=== PATIENT | male | born 1995 | race Caucasian/White ===

== ENCOUNTER 2024-07-16 09:17 | Outpatient (AMB) | payer OTHER, SELFPAY ==
--- NOTE | 2024-07-16 09:22 | A.OFFPC_ITS ---
Vital Signs 07/16/24 09:30 Height 5 ft 3.5 in Weight 197 lb BMI 34.3 BP 114/66 Blood Pressure Location Lt brachial Position Sitting Respiration 12 Pulse 78 Pulse Source Pulse Oximeter Temp 97.3 F Temp Source Oral Pulse Oximetry (%) 96 Oxygen Delivery Method Room Air Intake Visit Reasons: NEW PT EST CARE/HEART CONDITIONS WITH MEDS Intake Note: New patient to establish care Systems Qa Analyst Required: No Allergies Sulfa (Sulfonamide Antibiotics) Allergy (Severe, Verified 07/16/24 09:27) Unknown Medication List - Last Reconciled 07/16/24 by Janae Bailey, DEPENDENCY COUNSELOR- quetiapine (Seroquel) 300 mg PO BEDTIME Tobacco use date assessed: 07/16/24 Dental Screening Dental Screen Date: 07/16/24 Did you have a dental visit in the last 12 months?: Yes Did you have a dental problem in the last 6 months where you did not have access to dental care?: No Was dental information given to patient?: Patient declined HPI HPI Comments History of Present Illness Details 28 y/o M with bipolar 1, etoh dependence in remission, obesity Social: owns gym lives with parents Family hx: Dad prostate Ca, Health Maintenance: Tdap admin today Flu admin today Specialists: [facility] since 2014 Here today as a new patient to est care Previous PCP: Dr Bernabe No medical records avail Bipolar d/o: managed by [facility], on seroquel; has also been on abilify and haldol. Hx of etoh dep in remission Cards: having palpitations, a few times per month; can occur at HS and wake from sleep. Thought at first to be d/t etoh and seroquel. Denies use of stimulants or performing enhancing drugs. Sx started in 2019 - Describes post-exertional tachycardia, taking 5 minutes for heart rate normalization. Has had vertigo and headaches on the L side with negative work up in the recent past to include MRI brain. These sx are better since no etoh. Can feel electrical shock sensation throughout body when taking seroquel. Self decreased seroquel and changed to ER w/ improvement in sx w/ lowering dose. Exam awake alert NAD RRR LS with ins wheeze throughout No edema ble neuro exam nonfocal ekg: lvh normal QTc I discussed with the patient the need for comprehensive evaluation of his palpitations, recommending an EKG and a 72-hour Holter monitor study to document and characterize any arrhythmias. The patient was advised that the Holter will monitor cardiac activity, especially during exertional tasks known to provoke symptoms, ensuring a better understanding of the underlying etiology. Risks, benefits, and alternative diagnostic methods were discussed. Additionally, we discussed the importance of abstinence from alcohol and maintaining a healthy weight to help alleviate symptoms. Follow-up plans include a detailed review of monitor findings and subsequent management according to diagnostic outcomes. Plan: Tdap and flu today EKG today LVH -- consider echo &/or sleep study at next visit Labs Holter x 3 days RTO 3-4 weeks to review results Patient was informed and verbally consented to the use of an ambient scribe for clinic note documentation during this visit. Total time spent caring for the patient today was 40 minutes. This includes time spent before the visit reviewing the chart, time spent during the visit, and time spent after the visit on documentation, reviewing laboratory results, diagnostic imaging, medications, performing a medically necessary evaluation, counseling on diagnoses, care coordination, ordering appropriate tests, ordering appropriate medications, review of tests performed by other providers, reporting test results with the patient, communication with other healthcare providers. [facility] Medical History (Updated 07/16/24 @ 09:58 by Janae Bailey [facility]) Drug abuse (~2013) Alcohol abuse (~2013) Mental health disorder Hypothyroid Bipolar 1 disorder Anxiety and depression Surgical History (Updated 07/16/24 @ 09:35 by Viktoriya Jung MA) No pertinent past surgical history Family History (Updated 07/16/24 @ 09:36 by Viktoriya Jung MA) Maternal Grandmother Dementia Father Prostate cancer Social History (Updated 07/16/24 @ 09:29 by Viktoriya Jung MA) Household Members: Family Both parents involved: Yes Caregiver staying overnight: No Housing: House Are you a primary pet caregiver to a significant other at home: No Do you presently have visiting nurse or other home services: No 75 years or older and lives alone: No Alcohol intake: never Patient Tobacco Use Status: Never used Tobacco e-Cigarette/Vaping Use: Never Used Second Hand Smoke Exposure: No Current occupational status: employed Current occupation: kitchen Cognitive needs: No Hearing needs: No Vision needs: No Questionnaire PHQ-9 Over the last 2 weeks, how often have you been bothered by any of the following problems? 1. Little interest or pleasure in doing things: nearly every day 2. Feeling down, depressed, or hopeless: not at all 3. Trouble falling or staying asleep, or sleeping too much: not at all 4. Feeling tired or having little energy: not at all 5. Poor appetite or overeating: not at all 6. Feeling bad about yourself - or that you are a failure or have let yourself or your family down: not at all 7. Trouble concentrating on things, such as reading the newspaper or watching television: not at all 8. Moving or speaking so slowly that other people could have noticed. Or the opposite - being so fidgety or restless that you have been moving around a lot more than usual: not at all 9. Thoughts that you would be better off or of hurting yourself in some way: not at all Total score: 3 Depression Screening Interpretation: Negative Depression Screening Done: Yes 54593 - PHQ-9 Billing: Yes Source: Developed by Drs. Erasmo Matos, America Malcolm, Shaheed Queen and colleagues, with an educational maranda from [employer]. Thrive Questionnaire Date Thrive assessed: 07/16/24 I am a: Patient What is your living situation today?: I have a steady place to live Within the past 12 months, did the food you bought not last and you didn't have the money to get more?: Never true Within the past 12 months, did you worry whether your food would run out before you got money to buy more?: Never true Do you have trouble paying for medicines?: No Do you have trouble getting transportation to medical appointments?: No Do you have trouble paying your heating and electricity bill?: No Do you have trouble taking care of your child, family member or friend?: No Do you have trouble with day-to-day activities such as bathing, preparing meals, shopping, managing finances, etc.?: No Are you currently unemployed and looking for a job?: No Are you interested in more education?: No Please select the resources that you would like help with: None Currently or been in a relationship where the following occur: No concerns reported THRIVE Score: 0 AUDIT C Alcohol Use Questionnaire (AUDIT-C) 1. How often do you have a drink containing alcohol?: Never 3. How often do you have six or more drinks on one occasion?: Never Total Score: 0 TY-7 AMB Questionnaire TY-7 Date TY - 7 assessed: 07/16/24 Feeling nervous, anxious, or on edge: 0 = Not at all Not being able to stop or control worryin = Not at all Worrying too much about different things: 0 = Not at all Trouble relaxin = Not at all Being so restless that it is hard to sit still: 0 = Not at all Becoming easily annoyed or irritable: 0 = Not at all Feeling afraid as if something awful might happen: 0 = Not at all Total TY-7 score (0-4 normal; 5-9 mild; 10-14 moderate; 15-21 severe): 0 Source: Developed by Drs. Erasmo Matos, America Malcolm, Shaheed Queen and colleagues, with an educational maranda from [employer]. TY-7 Assessment Billing TY-7 Assessment Tool: TY-7 Assessment 91535 Physical exam (Primary Care) Vital Signs: Last Vital Signs Temp 97.3 F 07/16/24 09:30 Pulse 78 07/16/24 09:30 Resp 12 07/16/24 09:30 BP 114/66 07/16/24 09:30 Pulse Ox 96 07/16/24 09:30 Oxygen Delivery Method Room Air 07/16/24 09:30 BMI result Body Mass Index 34.3 BMI Assessment/Plan discussion: High BMI High, discussed plan: lifestyle Tobacco/Smoking Status: Tobacco use Status Tobacco use date assessed 07/16/24 07/16/24 09:32 Patient Tobacco Use Status Never used Tobacco 07/16/24 09:32 e-Cigarette/Vaping Use Never Used 07/16/24 09:32 PHQ-9: PHQ-9 Score PHQ-9: Total score 3 07/16/24 09:44 Depression Screening Interpretation: Negative Thrive Assessment: Date of Thrive Assessment Date Thrive assessed 07/16/24 07/16/24 09:26 Currently or been in a relationship where the following occur: No concerns reported Office Procedures EKG 18508-Pldnntdibulsefbgn, Complete Flu Questionnaire Does the patient have a severe egg allergy?: No Does the patient have severe life threatening allergies?: No Does the patient have a fever or illness today?: No Has the patient ever had Guillain-[place] Syndrome?: No Has the patient ever had any past reaction to a flu shot?: No Immunizations Fluarix Triv 0438-2305 (PF) 45 mcg (15 mcg x 3)/0.5 mL IM syringe Performing Provider: MARLON Lindsey Performing Location: [facility] Administered by: Renee Spicer RN on 07/16/24 10:06 Dose Route Admin Location Dispensed Lot Number Expiration Date NDC Motor Vehicle Or [employer] Sales[employer] 0.5 mL IM Left Deltoid 0.5 mL [id number] 10/20/24 15627-715-03 [employer]LA[employer] VIS Given Date VIS Provided VIS Publication Date 07/16/24 Single Vaccine 20 Eligibility Eligibility Date Funding Source Not VFC Eligible 07/16/24 Private Administration Comments: Patient received two vaccines today in the left deltoid, the flu shot and then TDaP below and to the right. Boostrix Tdap 2.5 Lf unit-8 mcg-5 Lf/0.5 mL intramuscular syringe Performing Provider: MARLON Lindsey Performing Location: [facility] Administered by: Renee Spicer RN on 07/16/24 10:06 Dose Route Admin Location Dispensed Lot Number Expiration Date [place] Motor Vehicle Or Caravan Salesperson 0.5 mL IM Left Deltoid 0.5 mL [id number] 02/17/25 37355-501-60 [employer]LAXOSMITH[employer] VIS Given Date VIS Provided VIS Publication Date 07/16/24 Single Vaccine 20 Eligibility Eligibility Date Funding Source Not VFC Eligible 07/16/24 Private Administration Comments: Patient received two vaccines today in the left deltoid, the flu shot and then TDaP below and to the right. Coding Level of Care Code New Pt Level 4 (17328) Complex EM visit Add On G2211 Diagnoses Encounter to establish care Z76.89 Palpitations R00.2 BMI 34.0-34.9,adult Z68.34 Alcohol use disorder in remission F10.91 LVH (left ventricular hypertrophy) I51.7 Bipolar 1 disorder F31.9 Obesity (BMI 30.0-34.9) E66.811 Need for Tdap vaccination Z23 Influenza vaccination administered at current visit Z23 CPT Codes EKG - CPT: 15780-Veshqgmkbmzgbmxcs, Complete ([id number]) Additional Codes TY-7 Assessment Billing - TY-7 Assessment Tool: TY-7 Assessment 75211 ([id number]) PHQ-9 - 36386 - PHQ-9 Billing: Yes ([id number]) Assessment & Plan Assessment & Plan (1) Encounter to establish care: Code(s): Z76.89 - Persons encountering health services in other specified circumstances Category: Medical (2) Palpitations: Code(s): R00.2 - Palpitations Category: Medical (3) BMI 34.0-34.9,adult: Code(s): Z68.34 - Body mass index [BMI] 34.0-34.9, adult Category: Medical (4) Alcohol use disorder in remission: Code(s): F10.91 - Alcohol use, unspecified, in remission Category: Medical (5) LVH (left ventricular hypertrophy): Comment: EKG 07/16/24 Code(s): I51.7 - Cardiomegaly Category: Medical (6) Bipolar 1 disorder: Code(s): F31.9 - Bipolar disorder, unspecified Category: Medical (7) Obesity (BMI 30.0-34.9): Code(s): E66.811 - Obesity, class 1 Category: Medical (8) Need for Tdap vaccination: Code(s): Z23 - Encounter for immunization Category: Medical (9) Influenza vaccination administered at current visit: Code(s): Z23 - Encounter for immunization Category: Medical Plan . Orders: Orders Comprehensive Met. Panel Today R00.2 - Palpitations Lipid Panel Today R00.2 - Palpitations Magnesium Today R00.2 - Palpitations ECG 3 day holter monitor Today R00.2 - Palpitations Complete Blood Count no Diff Today R00.2 - Palpitations Hemoglobin A1c Today R00.2 - Palpitations Microalbumin, Random (w Creat) Today R00.2 - Palpitations TSH reflex Free T4 Today R00.2 - Palpitations Vitamin B12 and Folate Today R00.2 - Palpitations Vitamin D 25-OH Total Today R00.2 - Palpitations Phosphorus Today R00.2 - Palpitations Influenza [id number] Immunization Today Z23 - Encounter for immunization TDaP Immunization Today Z23 - Encounter for immunization Medications: New Fluarix Triv [id number] (PF) (flu vacc [id number] 6mos up(PF)) 0.5 mL IM ONCE 0.5 mL 0RF NS Z23 - Encounter for immunization Boostrix Tdap (diphth,pertus(acell),tetanus) 0.5 mL IM ONCE 0.5 mL 0RF NS Z23 - Encounter for immunization Patient Instructions: - Undergo the recommended EKG and Holter monitor study as discussed. - Avoid alcohol to prevent exacerbation of palpitations. - Engage in a regular exercise regimen and dietary modifications for weight management. - Monitor cold symptoms and seek further evaluation if symptoms persist or worsen. - Follow up with the next appointment in 3-4 weeks for results review and further guidance. Walk-In Care (Urgent Care): We Make it Easy Walk-in for urgent medical issues such as: ? Seasonal Allergies ? Insect Bites ? Cough ? Diarrhea ? Acute Asthma Attacks ? Back, Knee or Joint Pain ? Ear Infection ? Fever without a Rash ? Headaches ? Nausea ? [place] [facility], Rash or Skin Irritation ? Sore Throat ? Sports Physicals ? Vomiting Most insurances are accepted. Patients do not need to be part of the [facility] to seek care at the walk-in clinic. Locations [facility] , [place] [address] ? [phone] [facility] Walk-In Care in Winter provides services to ages 18 and over. Open Sunday-Sunday: 8 a.m. to 5 p.m. and Sunday: 9 a.m. to 3 p.m.* *Hours may vary due to staffing availability. To confirm Walk-In Care hours in Winter, please call [phone]. [address] [place] [address] ? [phone] [facility] Walk-In Care in [place] provides services to ages 12 and over. Open Sunday-Sunday: 8 a.m. to 5 p.m. Hours may vary due to staffing availability. To confirm Walk-In Care hours in [place], please call [phone]. LABORATORY SERVICES: [facility] Lab ? Primary Location [address] [place] [address] Sunday through Sunday 6:00 AM ? 5:00 PM Sunday 7:00 AM ? 11:00 AM* [phone] The [facility] Lab is centrally located near the front entrance of the [facility] for easy outpatient access. Convenient parking is provided for outpatients. *Hours may vary due to staffing availability. To confirm Laboratory hours for any location, please call [phone]. Offsite Location For your convenience, we offer offsite laboratory draw stations at the following locations: [address] [place] [address] ? [facility] [address] [facility], [address] Sunday through Sunday 7:30 AM ? 1:00 PM* [phone] *Hours may vary due to staffing availability. To confirm Laboratory hours for any location, please call [phone]. [place] ? [address] Sunday through Sunday 6:00 AM ? 3:30 PM* Sunday 6:30 AM ? 3 PM* [phone] *Hours may vary due to staffing availability. To confirm Laboratory hours for any location, please call [phone] [place] [address] Sunday through Sunday 7:30 AM ? 4:00 PM* [phone] *Hours may vary due to staffing availability. To confirm Laboratory hours for any location, please call [phone] [place] [address] Sunday through 9:00 AM ? 4:00 PM* *Hours may vary due to staffing availability. To confirm Laboratory hours for any location, please call [phone]. Appointments are not necessary. Walk-ins are welcome. Like all the departments throughout the [facility], our Lab undergoes frequent reviews to ensure the quality and accuracy of test results, and our staff takes special pride in its status as a nationally accredited facility. Patient Portal: ONE PATIENT. ONE RECORD. BETTER CARE. [facility] has a fully integrated, cutting- edge mobile electronic health information system that has revolutionized the way we care for our patients and manage our organization. This system improves communication and coordination enabling us to provide safe, higher-quality care, and an overall positive experience for staff and patients. Our first priority, as always, is to deliver the highest quality care possible. The system is running in the background supporting that priority. This portal is for all [facility] services and practices. If you are experiencing any technical difficulties with enrolling or logging into the Patient Portal please complete the [facility] Patient Portal Technical Support Form. [facility] now offers a new secure on-line interactive tool for patients to review their health information ? ?Patient Portal. This interactive web portal will enable patients and their families to take an active role in their care by providing easy, secure access to their health information via the internet. The Patient Portal provides patients with instant access to their health information, including laboratory results, medications, allergies, demographic information, visit history, and more. In addition to managing their own care, parents and health care proxies with authorized consent will appreciate the ability to access the records of those individuals for whom they provide care. Please note: if you wish to gain access (Proxy) to another patient?s portal, you will be required to come to the Medical Records Department in person at [facility]. Both the patient giving proxy access and the proxy will need to provide photo identification and complete the appropriate authorization. The Patient Portal also allows track their appointments online. The [facility] Patient Portal also saves patients time by allowing them to submit updates to their demographic and contact information prior to their visits. Portal email notifications will also alert patients to any new activity on their portal, such as test results and new appointments. In order to initially enroll in the [facility] Patient Portal, you will need to enter some required information including the following: * your [facility] Medical Record number * your personal home email address * name * date of Please note: In order to enroll in the [facility] Patient Portal, we need to have your email address on file in your electronic medical record. ?The email address needs to be specific for one person (yourself) in order for your Portal enrollment to be successful. ?You can update your email address in person with our Registration staff when you are registering for a hospital visit. ?Otherwise, you will need to come to the Health Information Management (Medical Records) Department at [facility]. ?We are open from Sunday ? Sunday from 7:30 a.m. ? 4:30 p.m. ?You will be required to present a photo id. Once you have successfully enrolled in the Patient Portal, you will receive a one-time user id and password for the Portal, sent to your email address. ?This will allow you to log into the Patient Portal within 99 hrs and reset your own logon id and password, and define personal security questions. ?Once your permanent login and password have been set, you can log into the [facility] Patient Portal at any time via the blue button above or from the Portal Logon button on any page of the [facility] website. [facility] encourage all of our patients to enroll in Patient Portal as it presents a valuable opportunity for patients and their families to actively participate in their care and stay healthy Welcome to [facility]. ?We look forward to working with you.
[2024-07-16 09:30] VITALS: BP 114/66; PULSE 78; RESP 12; TEMP 36.3; O2SAT 96; BMI 34.3
== END 2024-07-16 10:04 | disposition home or self-care (01) ==
LOC: HO.HMCFM 09:18
PROVIDERS: PCP Nurse Practitioner Family; Visit Provider Nurse Practitioner Family
DX: R00.2 Palpitations (principal); F31.9 Bipolar disorder, unspecified; Z76.89 Persons encountering health services in other specified circumstances; Z68.34 Body mass index [BMI] 34.0-34.9, adult; F10.91 Alcohol use, unspecified, in remission; I51.7 Cardiomegaly; E66.811 Obesity, class 1; Z23 Encounter for immunization

== ENCOUNTER → 2024-07-16 09:17 | Outpatient (BNVA) | payer OTHER, SELFPAY | PROVIDERS: PCP Nurse Practitioner Family; Visit Provider Nurse Practitioner Family | DX: Z76.89 Persons encountering health services in other specified circumstances (principal); Z23 Encounter for immunization; R00.2 Palpitations; F10.91 Alcohol use, unspecified, in remission; I51.7 Cardiomegaly; F31.9 Bipolar disorder, unspecified; E66.811 Obesity, class 1; Z68.34 Body mass index [BMI] 34.0-34.9, adult | CPT/HCPCS: 90471; 90472; 90656; 90715; 93005; 96127 ==

== ENCOUNTER → 2024-08-08 10:49 | Outpatient (BNV) | payer OTHER, SELFPAY | PROVIDERS: PCP Nurse Practitioner Family; Visit Provider Internal Medicine Cardiovascular Disease | DX: R00.2 Palpitations (principal) | CPT/HCPCS: 93244 ==

== ENCOUNTER → 2024-08-08 11:06 | Outpatient (REF) | payer OTHER, SELFPAY | LOC: HO.CARD 11:06 | PROVIDERS: PCP Nurse Practitioner Family; Visit Provider Nurse Practitioner Family | DX: R00.2 Palpitations (principal) | CPT/HCPCS: 93242 ==

== ENCOUNTER 2024-08-21 12:27 | Outpatient (AMB) | payer OTHER, SELFPAY ==
--- NOTE | 2024-08-21 12:30 | MHC.PC.OV ---
Vital Signs 08/21/24 12:36 Height 5 ft 3.5 in Weight 195 lb BMI 34.0 BP 124/74 Blood Pressure Location Lt brachial Position Sitting Respiration 12 Pulse 87 Pulse Source Pulse Oximeter Temp 97.6 F Temp Source Oral Pulse Oximetry (%) 98 Oxygen Delivery Method Room Air Intake Visit Reasons: 3-4 weeks fu labs/fu holter 30 min Intake Note: Follow up holter Investment Sales Assistant Required: No Allergies Sulfa (Sulfonamide Antibiotics) Allergy (Severe, Verified 08/21/24 12:43) Unknown Medication List - Last Reconciled 08/21/24 by Janae Bailey, PRODUCT MANAGEMENT ANALYST- quetiapine (Seroquel) 250 mg PO BEDTIME Tobacco use date assessed: 07/16/24 Dental Screening Dental Screen Date: 07/16/24 HPI HPI Comments History of Present Illness Details 28 y/o M with bipolar 1, etoh dependence in remission, obesity Social: lives with parents Family hx: Dad prostate Ca, Health Maintenance: Tdap 2024 Flu 2024 Specialists: Psych [facility] since 2013 History of Present Illness - The patient is a 28-year-old male presenting with palpitations and reports of prolonged tachycardia post-exertion. - These symptoms have been ongoing for years. - The Holter monitor recorded a baseline normal sinus rhythm over two days and 23 hours, with an average heart rate of 80 bpm and no significant arrhythmias noted. - An EKG from a previous assessment showed left ventricular hypertrophy; the QTc interval was normal. - The patient has been advised to complete lab tests, which remain outstanding. - There is a history suggesting possible sleep apnea, with the patient reporting episodes of waking gasping for air. - He has been on Seroquel, which he associates with dry mouth and nocturnal swallowing difficulty. - Denies any chest pain. Exam awake alert NAD RRR LS clear and dim throughout No edema ble neuro exam nonfocal Results: ekg: lvh normal QTc 07/2024 Holter Conclusion: 1. Patient was monitored for total period of 2 days and 23 hours 2. Baseline was normal sinus rhythm without any significant pauses with average heart rate of 80 beats per minute 3. No significant arrhythmias noted 4. No patient reported events Discussion Notes I discussed with the patient the results of his Holter monitor, which showed no significant abnormalities, reassuring normal sinus rhythm without persistent arrhythmias. I explained the concern regarding left ventricular hypertrophy observed in the previous EKG and the importance of completing lab work for further evaluation. Given the symptoms suggestive of possible sleep apnea, I have recommended a home sleep study and emphasized the need for an echocardiogram to evaluate cardiac structure and function. I explained the risks associated with undiagnosed sleep apnea, including potential cardiac implications. The patient was informed that these evaluations should be done at his convenience and that I would arrange for a follow-up based on availability of test results. It was stressed that no significant arrhythmias were noted on his Holter monitor, and therefore, there is no immediate concern about continuation of his usual physical activities, including gym workouts. I advised completing recommended lab work today without the need for fasting. Assessment and Plan 1. Palpitations and Prolonged Tachycardia The Holter monitor displayed normal sinus rhythm without significant arrhythmias, reassuring absence of immediate concern. An echocardiogram is planned to further evaluate suspected LVH. 2. Left Ventricular Hypertrophy Further evaluation with an echocardiogram is recommended to determine the cause and effect on cardiac structure and function. 3. Possible Sleep Apnea A home sleep study is advised to evaluate the presence of sleep apnea and its potential impact on cardiac health. Patient Instructions - Complete lab tests today; fasting is not necessary. - Expect calls to schedule the echocardiogram and sleep study. - Continue physical activities without apprehension. - Monitor for any exacerbations or new symptoms. FU in 6 weeks for results, sooner PRN Consent Patient was informed and verbally consented to the use of an ambient scribe for clinic note documentation during this visit. Total time spent caring for the patient today was 30 minutes. This includes time spent before the visit reviewing the chart, time spent during the visit, and time spent after the visit on documentation, reviewing laboratory results, diagnostic imaging, medications, performing a medically necessary evaluation, counseling on diagnoses, care coordination, ordering appropriate tests, ordering appropriate medications, review of tests performed by other providers, reporting test results with the patient, communication with other healthcare providers. [facility] Medical History (Updated 08/21/24 @ 12:51 by [facility]) Alcohol abuse (~2013) Anxiety and depression Bipolar 1 disorder Drug abuse (~2013) Hypothyroid Mental health disorder Surgical History (Updated 07/16/24 @ 09:35 by Viktoriya Jung MA) No pertinent past surgical history Family History (Updated 07/16/24 @ 09:36 by Viktoriya Jung MA) Maternal Grandmother Dementia Father Prostate cancer Social History (Updated 07/16/24 @ 09:29 by Viktoriya Jung MA) Household Members: Family Housing: House Are you a primary neurocritical care physician to a significant other at home: No Do you presently have visiting nurse or other home services: No Alcohol intake: never Patient Tobacco Use Status: Never used Tobacco e-Cigarette/Vaping Use: Never Used Second Hand Smoke Exposure: No Current occupational status: employed Current occupation: kitchen Cognitive needs: No Hearing needs: No Vision needs: No Questionnaire Thrive Questionnaire Date Thrive assessed: 07/16/24 I am a: Patient What is your living situation today?: I have a steady place to live Within the past 12 months, did the food you bought not last and you didn't have the money to get more?: Never true Within the past 12 months, did you worry whether your food would run out before you got money to buy more?: Never true Do you have trouble paying for medicines?: No Do you have trouble getting transportation to medical appointments?: No Do you have trouble paying your heating and electricity bill?: No Do you have trouble taking care of your child, family member or friend?: No Do you have trouble with day-to-day activities such as bathing, preparing meals, shopping, managing finances, etc.?: No Are you currently unemployed and looking for a job?: No Are you interested in more education?: No Please select the resources that you would like help with: None Currently or been in a relationship where the following occur: No concerns reported THRIVE Score: 0 AUDIT C Alcohol Use Questionnaire (AUDIT-C) 3. How often do you have six or more drinks on one occasion?: Never Total Score: 0 TY-7 AMB Questionnaire TY-7 Date TY - 7 assessed: 07/16/24 Source: Developed by Drs. Erasmo Matos, America Malcolm, Shaheed Queen and colleagues, with an educational maranda from [employer]. Physical exam (Primary Care) Vital Signs: Last Vital Signs Temp 97.6 F 08/21/24 12:36 Pulse 87 08/21/24 12:36 Resp 12 08/21/24 12:36 BP 124/74 08/21/24 12:36 Pulse Ox 98 08/21/24 12:36 Oxygen Delivery Method Room Air 08/21/24 12:36 BMI result Body Mass Index 34.0 Tobacco/Smoking Status: Tobacco use Status Tobacco use date assessed 07/16/24 08/21/24 12:30 Patient Tobacco Use Status Never used Tobacco 08/21/24 12:30 e-Cigarette/Vaping Use Never Used 08/21/24 12:30 Thrive Assessment: Date of Thrive Assessment Date Thrive assessed 07/16/24 08/21/24 12:30 Currently or been in a relationship where the following occur: No concerns reported Coding Level of Care Code Est Pt Level 4 (72361) Complex EM visit Add On G2211 Diagnoses LVH (left ventricular hypertrophy) I51.7 Palpitations R00.2 Witnessed apneic spells R06.81 Assessment & Plan Assessment & Plan (1) LVH (left ventricular hypertrophy): Comment: EKG 07/16/24 Code(s): I51.7 - Cardiomegaly Category: Medical (2) Palpitations: Code(s): R00.2 - Palpitations Category: Medical (3) Witnessed apneic spells: Code(s): R06.81 - Apnea, not elsewhere classified Category: Medical Plan . Orders: Orders CA echo transthoracic complete Today I51.7 - Cardiomegaly, R00.2 - Palpitations, R06.81 - Apnea, not elsewhere classified RT home sleep study Today I51.7 - Cardiomegaly, R00.2 - Palpitations, R06.81 - Apnea, not elsewhere classified, R06.83 - Snoring
[2024-08-21 12:36] VITALS: BP 124/74; PULSE 87; RESP 12; TEMP 36.4; O2SAT 98; BMI 34.0
== END 2024-08-21 12:57 | disposition home or self-care (01) ==
LOC: HO.HMCFM 12:28
PROVIDERS: PCP Nurse Practitioner Family; Visit Provider Nurse Practitioner Family
DX: I51.7 Cardiomegaly (principal); R00.2 Palpitations; R06.81 Apnea, not elsewhere classified

== ENCOUNTER → 2024-08-21 12:27 | Outpatient (BNVA) | payer OTHER, SELFPAY | PROVIDERS: PCP Nurse Practitioner Family; Visit Provider Nurse Practitioner Family ==

== ENCOUNTER 2024-08-21 13:08 | Outpatient (REF) | payer OTHER, SELFPAY ==
[2024-08-21 14:22] LABS: Mean Corpuscular HGB Conc 34.1 g/dl (31.0-36.0); Mean Corpuscular Hemoglobin 29.6 pg (27.0-33.0); Mean Corpuscular Volume 86.8 fL (80.0-98.0); Mean Platelet Volume 9.5 fL (9.4-12.4); Platelet Count 269 X10*3/uL (160-400); Red Blood Count 5.07 X10*6/uL (4.60-5.80); Red Cell Distribution Width 12.5 % (11.0-16.0); White Blood Count 5.4 X10*3/uL (4.8-10.8)
[2024-08-21 14:44] LABS: Estimated Average Glucose 108 mg/dL; Hemoglobin A1C 138.2193 umol/L; Hemoglobin A1c % 5.4 % (<6.0); Total Hemoglobin (HGBA1C) 3873.5608 umol/L
[2024-08-21 15:02] LABS: Alanine Aminotransferase 40 U/L (0-40); Albumin Level 4.7 g/dL (3.5-5.0); Alkaline Phosphatase 45 U/L (39-117); Anion Gap 11 (12-20); Aspartate Amino Transferase 44 U/L (5-37); Bilirubin Total 0.3 mg/dL (0.0-1.0); Blood Urea Nitrogen 19 mg/dL (9-16); Calcium 9.8 mg/dL (8.4-10.2); Carbon Dioxide 25 mmol/L (22-29); Chloride 106 mmol/L (96-108); Cholesterol 167 mg/dL (<200); Estimated Glomerular Filt Rate > 60; Glucose Random 96 mg/dL (60-115); HDL Cholesterol 46 mg/dL (>40); LDL Cholesterol Calculated 107 mg/dL (<100); Magnesium 2.3 mg/dL (1.6-2.6); Phosphorus 3.6 mg/dL (2.7-4.5); Potassium 3.7 mmol/L (3.3-5.1); Sodium 138 mmol/L (135-145); Total Protein 7.5 g/dL (6.5-8.0); Triglycerides 70 mg/dL (<150)
[2024-08-21 15:04] LABS: Creatinine Urine 59.53 mg/dL; Microalbumin Urine < 5.0 mg/L
[2024-08-21 15:06] LABS: TSH reflex Free T4 8.17 uIU/mL (0.32-4.0); Vitamin D 25-OH Total 35.5 ng/mL (>30)
[2024-08-21 15:19] LABS: Folate 11.1 ng/mL (> or = 4.0); Vitamin B12 749 pg/mL (200-900)
[2024-08-21 15:54] LABS: Free T4 (Free Thyroxine) 0.92 ng/dL (0.71-1.85)
== END 2024-08-21 13:09 | disposition home or self-care (01) ==
LOC: HO.WFDLDS 13:08
PROVIDERS: Visit Provider Nurse Practitioner Family
DX: R00.2 Palpitations (principal); Z13.1 Encounter for screening for diabetes mellitus; Z13.6 Encounter for screening for cardiovascular disorders
CPT/HCPCS: 36415; 80053; 80061; 82043; 82306; 82570; 82607; 82746; 83036; 83735; 84100; 84439; 84443; 85027

== ENCOUNTER → 2024-10-01 13:21 | Outpatient (REF) | payer OTHER, SELFPAY ==
--- NOTE | 2024-10-01 13:25 | CA_ITS ---
Transthoracic Echocardiogram Patient (Last, First, Middle): Tal Xiong, Gender: Male Date of : 1995 Age: 28 Procedure Date: 10/01/2024 Procedure Type: Transthoracic Echocardiogram Location: OP Height: 162.56 cm Weight: 88.45 kg BSA: 1.94 m2 Heart Rate: 65 bpm BP: 124 / 72 mmHg Spreader Box Operator: SB Referring MD: Janae Bailey [facility]- Human Machine Interface Engineer: Anand Barragan MD Symptoms: I51.7 - Cardiomegaly Study Quality: Adequate ECG Rhythm: Sinus Conclusions: - Essentially normal study Findings Left Ventricle Normal left ventricular size, thickness, and systolic function. The visually estimated ejection fraction is between 60-65%. Diastolic function is normal for age. Right Ventricle Normal right ventricular cavity size and systolic function. There is a prominent moderator band seen in the right ventricle. Atria Both atria are normal in size. There is lipomatous hypertrophy of the interatrial septum. There is no evidence of interatrial shunt. Aortic Valve Normal aortic valve structure and function. There is no aortic valve stenosis. There is no aortic valve regurgitation. Mitral Valve Normal mitral valve structure and function. There is trace mitral valve regurgitation. There is no mitral valve stenosis. Pulmonic Valve The pulmonic valve is likely normal. Tricuspid Valve Normal tricuspid valve structure. There is trace tricuspid valve regurgitation. The right ventricular systolic pressure is normal. The right ventricular systolic pressure is 23 mmHg. Normal right atrial pressure. There is no evidence of pulmonary hypertension. Great Vessels All visible segments of the aorta are normal in size. The visualized portions of the pulmonary artery and branches are normal. Venous The inferior vena cava is normal in size and collapses greater than 50% with inspiration. Pericardium/Pleural There is no evidence of pericardial effusion. Prior Study Comparison No prior study available for comparison. Measurements 2D Linear Measurements IVSd: 0.88 0.6-0.9/0.6-1.0 cm LVIDd: 4.77 3.9-5.3/4.2-5.9 cm LVIDd Index: 2.46 2.4-3.2/2.2-3.1 cm/m2 LVIDs: 3.14 2.0-3.6 cm LVPWd: 1.06 0.7-1.1 cm LA Diam: 3.80 2.7-3.8/3.0-4.0 cm LAIDs Index: 1.96 1.5-2.3 cm/m2 LV Mass: 200.76 67-162/88-224 g LV Mass Index: 103.49 43-95/49-115 g/m2 LVOT Diam: 2.20 3.0+(-)1.3 cm 2D Systolic Function EF 4C: 56.60 >55% EF 2C: 62.00 >55% EF BiP: 60.20 >55% Mitral Valve MV Pk E: 0.79 MV PK A: 0.52 MV Decel Time: 191.00 E/A: 1.50 E'Lateral: 16.90 E'Medial: 11.10 E/E' Med: 7.10 E/E' Lat: 4.70 PHT: 56.00 MVA PHT: 3.93 Decel Cataño: 4.16 Aortic Valve AoV Pk Gomez: 1.32 AoV Pk Grad: 7.00 LIZZIE: 3.49 LVOT LVOT Pk Gomez: 1.14 LVOT Mn Gomez: 0.87 LVOT VTI: 0.23 LVOT Pk Grad: 5.00 LVOT Mn Grad: 3.00 LVOT Diam: 2.20 LVOT Area: 3.80 Diastolic Function MV Pk E: 0.79 MV Pk A: 0.52 E/A: 1.50 E'Medial: 11.10 E/E' Med: 7.10 E' Laterial: 16.90 E/E' Lat: 4.70 Right Ventricle TAPSE (mm): 24.30 TVS' Gomez: 14.00 Tricuspid Valve TR Pk Gomez: 2.26 TR Pk Grad: 20.00 RA Press: 3.00 RVSP: 23.00 Great Vessels Aorta Sinus of Valsalva: 2.70 2.0-3.5 cm Ao Asc: 2.70 2.1-3.4 cm Pulmonary Veins Pulm Vein S/D 1.30 Pulmonary Valve PV Pk Gomez: 1.06 Peak PV Grad: 4.00 Updated in Other Vendor System with Status of Final Anand Barragan MD electronically signed on 10/01/2024 5:10:54 PM with status of Final
== END ==
LOC: HO.CARD 13:21
PROVIDERS: PCP Nurse Practitioner Family; Visit Provider Nurse Practitioner Family
DX: R00.2 Palpitations (principal); I51.7 Cardiomegaly; R06.81 Apnea, not elsewhere classified
CPT/HCPCS: 93306

== ENCOUNTER → 2024-10-01 13:25 | Outpatient (BNV) | payer OTHER, SELFPAY | PROVIDERS: PCP Nurse Practitioner Family; Visit Provider Internal Medicine Cardiovascular Disease | DX: I51.7 Cardiomegaly (principal) | CPT/HCPCS: 93306 ==

== ENCOUNTER 2024-11-07 12:30 | Outpatient (AMB) | payer OTHER, SELFPAY ==
--- OUTSIDE RECORDS SUMMARY | 2024-11-07 12:32 | XMS_ITS | Clinical Summary ---
[facility] [place] [address] Care Team Providers Care Power Cleaner Operator Name Role Phone Unknown Primary Care Provider Unavailabl e Social History Tobacco Use Types Packs/Day Years Used Date Smoking Tobacco: Never Assessed Sex and Gender Information Value Date Recorded Sex Assigned at Not on file Legal Sex Male 5:37 PM EDT Gender Identity Not on file Sexual Orientation Not on file Plan of Treatment Health Maintenance Due Date Last Done Comments HIV screen 10/27/2011 Hepatitis C Screening 10/27/2011 Hepatitis B vaccine (0-59 yrs) and Risk (1) 2012 Tetanus/Diphtheria/Pertussis Vaccines (1 - Tdap) 10/26 Covid-19 Vaccine (1 - 2023- season) 2023 Influenza (Flu) vaccine (1 o f 1 - Influenza standard series) 12/22/2024 Care Teams Power Cleaner Operator Relationship Specialty Start Date End Date Unknown None PCP - General 04/09/17
--- OUTSIDE RECORDS SUMMARY | 2024-11-07 12:32 | XMS_ITS | Clinical Summary ---
Author Organization [facility] Address [address] [place] [id number] Phone Care Team Providers Care Work Checker Name Role Phone Anil Bernabe MD Primary Care Provider [phone] Allergies Active Allergy Reactions Criticality Noted Date Comments Sulfa (Sulfonamide Antibiotics) Unknown 09/2022 Medications QUEtiapine (SEROQUEL XR) 400 MG 24 hr tablet TAKE 1 TABLET BY MOUTH ONCE A DAY APPROX 3 HOURS BEFORE BEDTIME 01/03/2023 Active Active Problems No known active problems Immunizations No known immunizations Social History Tobacco Use Types Packs/Day Years Used Date Smoking Tobacco: Former Cigarettes Smokeless Tobacco: Never Tobacco Cessation:Counseling Given: Not Answered Education Answer Date Recorded Are you interested in more education? Not on dallin e 01/26/2023 Are you concerned about learning? Not on file 01/26/2023 No 01/26/2023 No 01/26/2023 Digital Access Answer Date Recorded No 01/26/2023 No 01/26/2023 Reliable internet access at home? Not on file 01/26/2023 Device with a working camera? Not on file Sex and Gender Information Value Date Recorded Sex Assigned at Not on file Legal Sex Male 6:20 PM EDT Gender Identity Not on file Sexual Orientation Not on file Last Filed Vital Signs Vital Sign Reading Time Taken Comments Blood Pressure 130/75 06/05/2023 7:09 PM EST Pulse 86 06/05/2023 7:09 PM EST Temperature 37.4 C (99.3 F) 06/05/2023 7:09 PM EST Respiratory Rate 16 06/05/2023 7:09 PM EST Oxygen Saturation 97% 06/05/2023 7:09 PM EST Inhaled Oxygen Concentration - - Weight 88.5 kg (195 lb) 06/05/2023 7:09 PM EST Height 160 cm (5' 3 ) 06/05/2023 7:09 PM EST Body Mass Index 34.54 06/05/2023 7:09 PM EST Plan of Treatment Health Maintenance Due Date Last Done Comments Adult Td,Tdap Booster 1995 DEPRESSION SCREENING 2005 SMOKING Hx and SMOKELESS TOBACCO SCREENING 2006 HEPATITIS C SCREENING 10/27/2011 HIV ONE-TIME SCREENING (18-6 5 YEARS) 10/27/2011 COVID-19 VACCINE (2023-2 5 season) 2023 09/09/2020, 08/19/2020 HEPATITIS A VACCINES Aged Out No long er eligible based on patient's age to complete this topic HIB VACCINES Aged Out No longer eligi ble based on patient's age to complete this topic MENINGOCOCCAL VACCINES (ACWY) Aged Out No longer eligible based on patient's age to complete this topic MENINGOCOCCAL VACCINES (B) Aged Out N o longer eligible based on patient's age to complete this topic PNEUMOCOCCAL VACCINES (0-49 years) Aged Out No longer eligible b ased on patient's age to complete this topic Medical Devices Not on file Insurance [facility] [place] [id number] [facility] [address] [address] [place] [id number] [facility] H[facility] H[facility] H[facility] Care Teams Work Checker Relationship Specialty Start Date End Date Anil Bernabe MD [address] [place] [id number] PCP - General Internal Medicine 01/26/23 Additional Source Comments The information contained in this document represents components of the legal health record. It is not the complete legal health record.[facility]
--- NOTE | 2024-11-07 12:34 | A.OFFPC_ITS ---
Vital Signs 11/07/24 12:39 Height 5 ft 3.5 in Weight 187 lb 6 oz BMI 32.7 BP 138/77 Blood Pressure Location Lt brachial Position Sitting Respiration 13 Pulse 88 Pulse Source Pulse Oximeter Temp 96.9 F Temp Source Oral Pulse Oximetry (%) 99 Oxygen Delivery Method Room Air Intake Visit Reasons: 6 weeks 30 min fu echo and sleep study results Intake Note: Follow up to review echo and was unable to do sleep study because his insurance wouldn't pay for it. Roller Man Required: No Allergies Sulfa (Sulfonamide Antibiotics) Allergy (Severe, Verified 11/07/24 13:00) Unknown Medication List - Last Reconciled 11/07/24 by FRANKI Lindsey- quetiapine (Seroquel) 250 mg PO BEDTIME Tobacco use date assessed: 11/07/24 Dental Screening Dental Screen Date: 11/07/24 Did you have a dental visit in the last 12 months?: Yes Did you have a dental problem in the last 6 months where you did not have access to dental care?: No Was dental information given to patient?: Patient has dentist HPI HPI Comments History of Present Illness Details 28 y/o M with bipolar 1, etoh dependence in remission, obesity Social: lives with parents Family hx: Dad prostate Ca, Health Maintenance: Tdap 2024 Flu 2024 Specialists: Psych [facility] since 2013 History of Present Illness - The patient is a 29-year-old male pres enting with follow-up on echocardiogram and sleep apnea. - Echocardiogram - see below. - Reports palpitations; unlikely but thi s could be related to lipomatous hypertrophy in the septum. He would like to see Cards. - Holter monitor was normal - Sleep study ordered but not accepted a t [facility]. Advised he call insurance and see where he can have this completed. - Bipolar disorder: on seroquel managed by outside presciber; wants to taper seroquel down d/t side effects. Edu on need to work w/ prescriber & risks of uncontrolled Bipolar. - Prior substance abuse history; now sob er - PRevious TSH > 8 due for repeat labs ADvised to get done today. Review of Systems - Cardiovascular: Reports palpitations. - Sleep: Reports waking up breathless, d ry mouth. - Psychiatric: History bipolar disorder, prior substance abuse, no current use. - ENT: Denies present wheeze, reports pa st nasal congestion due to allergies. Physical Exam General: Well developed, well nourished, in no acute distress. Appears stated age. Head: Normocephalic, atraumatic. Eyes: Pupils are equal, round and reactive to light and accommodation. Conjunctivae are clear. Lungs: Dim throughout, Clear to auscultation bilaterally. No rales, rhonchi or wheeze noted. Good air flow in all oleary. Heart: Regular rate and rhythm. No murmurs, click, rubs or gallops are noted. Musculoskeletal: Joints are nontender, without swelling, redness, or effusions. Pulses: Peripheral pulses are equal and palpable bilaterally. Extremities: No clubbing, cyanosis nor edema is noted. Psych: Mood and affect appropriate. Results - Tests: Echocardiogram see below; Velez er monitor normal. Discussion Notes In our review, I discussed with the patient the benign nature of his echocardiographic findings. We considered the lipomatous hypertrophy of the interatrial septum to be unlikely significant, although could play a part in his reported palpitations. I explained that while his Holter monitor results were normal,he wishes to consult with a alcohol still operator at [facility] for further evaluation, for the patient?s peace of mind. We discussed the importance of completing a sleep study, given his suspected obstructive sleep apnea and its potential impact on cardiac health. I reiterated the plan to contact his insurance provider to find a covered facility. Additionally, the need to repeat thyroid labs was communicated to further evaluate previously abnormal results. I edu him on risks of tapering his Seroquel and emphasized the importance of continuing to avoid substance use given his bipolar disorder diagnosis. Assessment and Plan 1. Lipomatous hypertrophy of interatrial septum - Plan: Cardiology consult. 2. Suspected obstructive sleep apnea - Plan: Sleep study; contact insurance. 3. Bipolar disorder - Plan: Adjust Seroquel; monitor sobriet y. 4. Elevated TSH - Plan: Labs today . Patient Instructions - Contact your insurance to find a place to do the sleep study. - Schedule a visit with the alcohol still operator at [facility]. - Monitor how you feel on the adjusted S eroquel dose. - Continue to avoid alcohol and drugs. - Follow up with repeat thyroid tests as discussed. - RTO Dec CPE and review of sleep study results, sooner PRN Consent Patient was informed and verbally consented to the use of an ambient scribe for clinic note documentation during this visit. Total time spent caring for the patient today was 30 minutes. This includes time spent before the visit reviewing the chart, time spent during the visit, and time spent after the visit on documentation, reviewing laboratory results, diagnostic imaging, medications, performing a medically necessary evaluation, counseling on diagnoses, care coordination, ordering appropriate tests, ordering appropriate medications, review of tests performed by other providers, reporting test results with the patient, communication with other healthcare providers. [facility] Medical History (Updated 11/07/24 @ 14:10 by Janae Bailey, [facility]) Alcohol abuse (~2013) Anxiety and depression Bipolar 1 disorder Drug abuse (~2013) Hypothyroid Mental health disorder Surgical History (Updated 07/16/24 @ 09:35 by Viktoriya Jung MA) No pertinent past surgical history Family History (Updated 07/16/24 @ 09:36 by Viktoriya Jung MA) Maternal Grandmother Dementia Father Prostate cancer Social History (Updated 07/16/24 @ 09:29 by Viktoriya Jung MA) Household Members: Family Housing: House Are you a primary career resource technician to a significant other at home: No Do you presently have visiting nurse or other home services: No Alcohol intake: never Patient Tobacco Use Status: Never used Tobacco e-Cigarette/Vaping Use: Never Used Second Hand Smoke Exposure: No Current occupational status: employed Current occupation: kitchen Cognitive needs: No Hearing needs: No Vision needs: No Questionnaire PHQ-9 Over the last 2 weeks, how often have you been bothered by any of the following problems? 1. Little interest or pleasure in doing things: not at all 2. Feeling down, depressed, or hopeless: not at all 3. Trouble falling or staying asleep, or sleeping too much: not at all 4. Feeling tired or having little energy: not at all 5. Poor appetite or overeating: not at all 6. Feeling bad about yourself - or that you are a failure or have let yourself or your family down: not at all 7. Trouble concentrating on things, such as reading the newspaper or watching television: not at all 8. Moving or speaking so slowly that other people could have noticed. Or the opposite - being so fidgety or restless that you have been moving around a lot more than usual: not at all 9. Thoughts that you would be better off or of hurting yourself in some way: not at all Total score: 0 Depression Screening Interpretation: Negative Depression Screening Done: Yes 57621 - PHQ-9 Billing: Yes Source: Developed by Drs. Erasmo Matos, America Malcolm, Shaheed Queen and colleagues, with an educational maranda from [email or web address]. Thrive Questionnaire Date Thrive assessed: 07/16/24 I am a: Patient What is your living situation today?: I have a steady place to live Within the past 12 months, did the food you bought not last and you didn't have the money to get more?: Never true Within the past 12 months, did you worry whether your food would run out before you got money to buy more?: Never true Do you have trouble paying for medicines?: No Do you have trouble getting transportation to medical appointments?: No Do you have trouble paying your heating and electricity bill?: No Do you have trouble taking care of your child, family member or friend?: No Do you have trouble with day-to-day activities such as bathing, preparing meals, shopping, managing finances, etc.?: No Are you currently unemployed and looking for a job?: No Are you interested in more education?: No Please select the resources that you would like help with: None Currently or been in a relationship where the following occur: No concerns reported THRIVE Score: 0 AUDIT C Alcohol Use Questionnaire (AUDIT-C) 1. How often do you have a drink containing alcohol?: Never Total Score: 0 Score Reviewed/Action Taken: Yes TY-7 AMB Questionnaire TY-7 Date TY - 7 assessed: 11/07/24 Feeling nervous, anxious, or on edge: 0 = Not at all Not being able to stop or control worryin = Not at all Worrying too much about different things: 0 = Not at all Trouble relaxin = Not at all Being so restless that it is hard to sit still: 0 = Not at all Becoming easily annoyed or irritable: 0 = Not at all Feeling afraid as if something awful might happen: 0 = Not at all Total TY-7 score (0-4 normal; 5-9 mild; 10-14 moderate; 15-21 severe): 0 Source: Developed by Drs. Erasmo Matos, America Malcolm, Shaheed Queen and colleagues, with an educational maranda from [email or web address]. TY-7 Assessment Billing TY-7 Assessment Tool: TY-7 Assessment 84473 Physical exam (Primary Care) Vital Signs: Last Vital Signs Temp 96.9 F 11/07/24 12:39 Pulse 88 11/07/24 12:39 Resp 13 11/07/24 12:39 BP 138/77 11/07/24 12:39 Pulse Ox 99 11/07/24 12:39 Oxygen Delivery Method Room Air 11/07/24 12:39 BMI result Body Mass Index 32.7 Tobacco/Smoking Status: Tobacco use Status Tobacco use date assessed 11/07/24 11/07/24 12:41 Patient Tobacco Use Status Never used Tobacco 11/07/24 12:41 e-Cigarette/Vaping Use Never Used 11/07/24 12:41 PHQ-9: PHQ-9 Score PHQ-9: Total score 0 11/07/24 12:54 Depression Screening Interpretation: Negative Thrive Assessment: Date of Thrive Assessment Date Thrive assessed 07/16/24 11/07/24 12:41 Currently or been in a relationship where the following occur: No concerns reported Results Reviewed Results Reviewed: [place] [address] Cardiology Report Signed Patient: Tal Xiong MR#: [id number] : 1995 Acct:[id number] Age/Sex: 28 / M ADM Date: 10/01/24 Loc: [facility] Attending Dr: Janae MASON Ordering Physician: Janae Bailey Date of Service: 10/01/24 Procedure(s): CA echo transthoracic complete Accession Number(s): cc: Janae Bailey~ Transthoracic Echocardiogram Patient (Last, First, Middle): Tal Xiong, Gender: Male Date of : 1995 Age: 28 Procedure Date: 10/01/2024 Procedure Type: Transthoracic Echocardiogram Location: OP Height: 162.56 cm Weight: 88.45 kg BSA: 1.94 m2 Heart Rate: 65 bpm BP: 124 / 72 mmHg Copy Center Specialist: SB Referring MD: Janae Bialey [facility] Acting Instructor: Anand Barragan MD Symptoms: I51.7 - Cardiomegaly Study Quality: Adequate ECG Rhythm: Sinus Conclusions: - Essentially normal study Findings Left Ventricle Normal left ventricular size, thickness, and systolic function. The visually estimated ejection fraction is between 60-65%. Diastolic function is normal for age. Right Ventricle Normal right ventricular cavity size and systolic function. There is a prominent moderator band seen in the right ventricle. Atria Both atria are normal in size. There is lipomatous hypertrophy of the interatrial septum. There is no evidence of interatrial shunt. Aortic Valve Normal aortic valve structure and function. There is no aortic valve stenosis. There is no aortic valve regurgitation. Mitral Valve Normal mitral valve structure and function. There is trace mitral valve regurgitation. There is no mitral valve stenosis. Pulmonic Valve The pulmonic valve is likely normal. Tricuspid Valve Normal tricuspid valve structure. There is trace tricuspid valve regurgitation. The right ventricular systolic pressure is normal. The right ventricular systolic pressure is 23 mmHg. Normal right atrial pressure. There is no evidence of pulmonary hypertension. Great Vessels All visible segments of the aorta are normal in size. The visualized portions of the pulmonary artery and branches are normal. Venous The inferior vena cava is normal in size and collapses greater than 50% with inspiration. Pericardium/Pleural There is no evidence of pericardial effusion. Prior Study Comparison No prior study available for comparison. Measurements 2D Linear Measurements IVSd: 0.88 0.6-0.9/0.6-1.0 cm LVIDd: 4.77 3.9-5.3/4.2-5.9 cm LVIDd Index: 2.46 2.4-3.2/2.2-3.1 cm/m2 LVIDs: 3.14 2.0-3.6 cm LVPWd: 1.06 0.7-1.1 cm LA Diam: 3.80 2.7-3.8/3.0-4.0 cm LAIDs Index: 1.96 1.5-2.3 cm/m2 LV Mass: 200.76 67-162/88-224 g LV Mass Index: 103.49 43-95/49-115 g/m2 LVOT Diam: 2.20 3.0+(-)1.3 cm 2D Systolic Function EF 4C: 56.60 >55% EF 2C: 62.00 >55% EF BiP: 60.20 >55% Mitral Valve MV Pk E: 0.79 MV PK A: 0.52 MV Decel Time: 191.00 E/A: 1.50 E'Lateral: 16.90 E'Medial: 11.10 E/E' Med: 7.10 E/E' Lat: 4.70 PHT: 56.00 MVA PHT: 3.93 Decel [place]: 4.16 Aortic Valve AoV Pk Gomez: 1.32 AoV Pk Grad: 7.00 LIZZIE: 3.49 LVOT LVOT Pk Gomez: 1.14 LVOT Mn Gomez: 0.87 LVOT VTI: 0.23 LVOT Pk Grad: 5.00 LVOT Mn Grad: 3.00 LVOT Diam: 2.20 LVOT Area: 3.80 Diastolic Function MV Pk E: 0.79 MV Pk A: 0.52 E/A: 1.50 E'Medial: 11.10 E/E' Med: 7.10 E' Laterial: 16.90 E/E' Lat: 4.70 Right Ventricle TAPSE (mm): 24.30 TVS' Gomez: 14.00 Tricuspid Valve TR Pk Gomez: 2.26 TR Pk Grad: 20.00 RA Press: 3.00 RVSP: 23.00 Great Vessels Aorta Sinus of Valsalva: 2.70 2.0-3.5 cm Ao Asc: 2.70 2.1-3.4 cm Pulmonary Veins Pulm Vein S/D 1.30 Pulmonary Valve PV Pk Gomez: 1.06 Peak PV Grad: 4.00 Updated in Other Vendor System with Status of Final Anand Barragan MD electronically signed on 10/01/2024 5:10:54 PM with status Coding Level of Care Code Est Pt Level 4 (85556) Complex EM visit Add On G2211 Diagnoses LVH (left ventricular hypertrophy) I51.7 Palpitations R00.2 Elevated TSH R79.89 Witnessed apneic spells R06.81 Bipolar 1 disorder F31.9 Trace mitral valve regurgitation I34.0 Additional Codes TY-7 Assessment Billing - TY-7 Assessment Tool: TY-7 Assessment 57891 ([id number]) PHQ-9 - 02577 - PHQ-9 Billing: Yes ([id number]) Assessment & Plan Assessment & Plan (1) LVH (left ventricular hypertrophy): Comment: EKG 07/16/24 echo 10/2024 Right Ventricle Normal right ventricular cavity size and systolic function. There is a prominent moderator band seen in the right ventricle. Atria Both atria are normal in size. There is lipomatous hypertrophy of the interatrial septum. There is no evidence of interatrial shunt. Code(s): I51.7 - Cardiomegaly Category: Medical (2) Palpitations: Code(s): R00.2 - Palpitations Category: Medical (3) Elevated TSH: Code(s): R79.89 - Other specified abnormal findings of blood chemistry Category: Medical (4) Witnessed apneic spells: Code(s): R06.81 - Apnea, not elsewhere classified Category: Medical (5) Bipolar 1 disorder: Code(s): F31.9 - Bipolar disorder, unspecified Category: Medical (6) Trace mitral valve regurgitation: Onset Date: ~11/07/24 Comment: echo 10/2024 Right Ventricle Normal right ventricular cavity size and systolic function. There is a prominent moderator band seen in the right ventricle. Atria Both atria are normal in size. There is lipomatous hypertrophy of the interatrial septum. There is no evidence of interatrial shunt. Code(s): I34.0 - Nonrheumatic mitral (valve) insufficiency Category: Medical Plan . Orders: Referrals Cardiology Referral I51.7 - Cardiomegaly, R00.2 - Palpitations
[2024-11-07 12:39] VITALS: BP 138/77; PULSE 88; RESP 13; TEMP 36.1; O2SAT 99; BMI 32.7
== END 2024-11-07 13:12 | disposition home or self-care (01) ==
LOC: HO.HMCFM 12:31
PROVIDERS: PCP Nurse Practitioner Family; Visit Provider Nurse Practitioner Family
DX: I51.7 Cardiomegaly (principal); R00.2 Palpitations; R79.89 Other specified abnormal findings of blood chemistry; R06.81 Apnea, not elsewhere classified; F31.9 Bipolar disorder, unspecified; I34.0 Nonrheumatic mitral (valve) insufficiency

== ENCOUNTER → 2024-11-07 12:30 | Outpatient (BNVA) | payer OTHER, SELFPAY | PROVIDERS: PCP Nurse Practitioner Family; Visit Provider Nurse Practitioner Family | DX: I51.7 Cardiomegaly (principal); R00.2 Palpitations; R79.89 Other specified abnormal findings of blood chemistry; R06.81 Apnea, not elsewhere classified; F31.9 Bipolar disorder, unspecified; I34.0 Nonrheumatic mitral (valve) insufficiency; Z13.31 Encounter for screening for depression; Z13.39 Encounter for screening examination for other mental health and behavioral disorders | CPT/HCPCS: 96127 ==

== ENCOUNTER 2024-11-07 13:45 | Outpatient (REF) | payer OTHER, SELFPAY ==
[2024-11-07 18:42] LABS: Free T4 (Free Thyroxine) 0.91 ng/dL (0.71-1.85)
== END 2024-11-07 13:46 | disposition home or self-care (01) ==
LOC: HO.WFDLDS 13:45
PROVIDERS: Visit Provider Nurse Practitioner Family
DX: R79.89 Other specified abnormal findings of blood chemistry (principal); R74.8 Abnormal levels of other serum enzymes
CPT/HCPCS: 36415; 84439; 84443; 86376